=== PATIENT | female | born 1975 | race Caucasian/White ===

== ENCOUNTER → 2017-02-22 | Outpatient (CLI) | payer OTHER ==
[~2017-02-22] MED LIST: CYCL10TA6 PO; ERGO500037 PO; IBUP600T44 PO; OXYC-57 PO; ventolin inhaler INH
--- NOTE | 2017-02-22 10:57 | DIAGNOSTIC IMAGING REPORT ---
MRI CERVICAL WITHOUT CONTRAST CLINICAL HISTORY: Neck pain. Cervical spinal stenosis. TECHNIQUE: Sagittal and axial T1, T2 and STIR images were obtained. COMPARISON STUDY: No previous studies for comparison. There are no suspicious areas of marrow replacement. No intrinsic cervical cord lesions are visualized. C2-3: There is no evidence of disc bulge or focal herniation. There is no spinal or foraminal stenosis. C3-4: There is no evidence of disc bulge or focal herniation. There is no spinal or foraminal stenosis. C4-5: There is a mild circumferential disc bulge. There is minor spinal canal narrowing. There is no significant foraminal narrowing C5-6 :There is a mild circumferential disc bulge. There is bilateral foraminal narrowing. There is mild spinal canal narrowing C6-7: There is a mild circumferential disc bulge present. There is no significant spinal stenosis. There is minor bilateral foraminal narrowing C7-T1: There is no evidence of disc bulge or focal herniation. There is no evidence of spinal or foraminal stenosis. IMPRESSION: 1. Multilevel spondylitic changes. Mild spinal stenosis at the C4-5 and C5-6 levels. Bilateral foraminal narrowing C5-6 and C6-7 levels. 2. No intrinsic cervical cord lesions are visualized Electronically signed by: Mook Banks M.D. 02/22/2017 10:56 AM Dictated Date/Time: 02/22/2017 10:37 AM
== END | disposition home or self-care (01) ==
LOC: C.MRI 09:50
PROVIDERS: ATTEND Orthopaedic Surgery Orthopaedic Surgery of the Spine
DX: M99.81 Other biomechanical lesions of cervical region (principal); M47.812 Spondylosis without myelopathy or radiculopathy, cervical region

== ENCOUNTER → 2017-03-08 | Outpatient (CLI) | payer OTHER | END | disposition home or self-care (01) | LOC: C.LAB 15:03 | DX: E55.9 Vitamin D deficiency, unspecified (principal); E03.9 Hypothyroidism, unspecified ==

== ENCOUNTER 2017-04-18 05:06 | Inpatient (IN) | payer OTHER ==
[2017-03-08 14:44] VITALS: BMI 32.0
--- NOTE | 2017-03-08 15:11 | PAT Medication Instructions ---
Service Date Mar 08, 2017. Current Home Medication List Cyclobenzaprine Hcl (Flexeril), 10 MG PO BID PRN for PRN Ergocalciferol (Vitamin D 69446 Unit), 50,000 UNIT PO MONDAY Ibuprofen (Motrin), 600 MG PO Q6H PRN for Pain Oxycodone/Acetaminophen 5MG/325MG (Percocet 5MG/325MG), 1-2 TABLETS PO Q6 PRN for Pain Medication Instructions For Your Scheduled Surgery - Hold the following medications 7-10 days prior to surgery per surgeon's instructions: Ibuprofen (Motrin), 600 MG PO Q6H PRN for Pain - Hold the following medications the morning of surgery: Cyclobenzaprine Hcl (Flexeril), 10 MG PO BID PRN for PRN - Take the following medications the morning of surgery with a sip of water OTHERWISE NOTHING TO EAT OR DRINK AFTER MIDNIGHT: Oxycodone/Acetaminophen 5MG/325MG (Percocet 5MG/325MG), 1-2 TABLETS PO Q6 PRN for Pain (may take up to 4 hours prior to surgery if needed) - Take the following medications as scheduled the night before surgery: Cyclobenzaprine Hcl (Flexeril), 10 MG PO BID PRN for PRN Oxycodone/Acetaminophen 5MG/325MG (Percocet 5MG/325MG), 1-2 TABLETS PO Q6 PRN for Pain If you have any questions please call us at [phone] or [phone] or [phone]
--- NOTE | 2017-03-08 15:57 | DIAGNOSTIC IMAGING REPORT ---
TWO VIEW CHEST CLINICAL HISTORY: Preoperative examination. FINDINGS: PA and lateral chest radiographs are obtained. No prior studies are available for comparison at the time of dictation. The cardiac mediastinal silhouette is unremarkable. There are low lung volumes with mild elevation of left hemidiaphragm. The lungs and pleural spaces are clear. There is no pneumothorax. The bony thorax appears intact. IMPRESSION: Low lung volumes with no active disease in the chest. Electronically signed by: Narciso Lin M.D. 03/08/2017 3:55 PM Dictated Date/Time: 03/08/2017 3:54 PM
[2017-03-08 16:17] LABS: BASO % 0.2 %; BASO ABS # 0.02 K/uL (0-0.2); COMPLETE YES; HEMATOCRIT 42.6 % (37-47); IG% 0.2 %; LYMPH % 27.1 %; LYMPH ABS # 2.58 K/uL (1.2-3.4); MEAN CELL VOLUME 89.1 fL (80-100); MEAN CORPUSCULAR HEMOGLOBIN 30.8 pg (25-34); MEAN CORPUSCULAR HGB CONC 34.5 g/dl (32-36); MONO % 7.1 %; NEUT % 64.4 %; PLATELET COUNT 369 K/uL (130-400); RED BLOOD COUNT 4.78 M/uL (4.2-5.4); WHITE BLOOD COUNT 9.53 K/uL (4.8-10.8)
[2017-03-08 16:18] LABS: URINE APPEARANCE CLEAR (CLEAR); URINE BILIRUBIN NEG (NEG); URINE COLOR YELLOW; URINE NITRITE NEG (NEG); URINE PH 5.5 (4.5-7.5); URINE SPECIFIC GRAVITY 1.022 (1.000-1.030); UROBILINOGEN NEG (NEG)
[2017-03-08 16:22] LABS: MANUAL MICROSCOPIC REQUIRED? NO; REVIEW REQ? NO
[2017-03-08 16:35] LABS: CALCIUM 9.1 mg/dl (8.5-10.1); CREATININE 0.74 mg/dl (0.60-1.20); POTASSIUM 4.2 mmol/L (3.5-5.1)
--- NOTE | 2017-04-10 12:56 | HISTORY & PHYSICAL EXAMINATION ---
DATE OF ADMISSION: 04/18/2017 CHIEF COMPLAINT: Neck pain and bilateral hand numbness. HISTORY OF PRESENT ILLNESS: The patient is a 41-year-old female with a chronic history of neck pain that radiates into the arms bilaterally. She reports paresthesias, dysesthesias in both hands that has been present for greater than a year. She has been treated with physical therapy and epidural injections without lasting improvement. She has had 2 different MRIs that demonstrates varying degrees of cervical disc degeneration C4-C5 and C5-C6 with disc protrusions and central and foraminal stenosis. Neurocompression is greatest at C5-C6 with indentation of the ventral cord and decreased space available for the cord in the central canal. She has foraminal stenosis greatest at C5-6 bilaterally. She has modest narrowing centrally at C4-C5 as well. There is no myelomalacia. She denies pipo myelopathic symptoms. She denies incontinence. PAST MEDICAL HISTORY: History of obesity, chronic neck and back pain, history of mitral valve prolapse, history of septoplasty 94. MEDICATIONS: Percocet, Flexeril, ibuprofen, vitamin D. ALLERGIES: SILVADENE. SOCIAL HISTORY: The patient denies alcohol, tobacco or drug use. FAMILY HISTORY: She denies any known history of malignant hypothermia, difficult intubation. REVIEW OF SYSTEMS: The patient denied coronary artery disease, dyspnea on exertion, chest pain, shortness of breath, history of incontinence. PHYSICAL EXAMINATION: The patient stands 5 feet 4 inches tall, weighs 180 pounds. Her BMI is 31. She stands easily and ambulates with a normal gait without ataxia. She has normal affect and questions appropriately. She has full cervical range of motion with a negative Lhermitte's and negative Spurling's. She has 5/5 strength mini motor testing of both upper extremities and intact sensation to light touch in all distributions in the upper extremities and symmetric normal DTRs in the upper extremities with negative Roldan's bilaterally. She has palpable radial pulses bilaterally and negative Tinel's over the median nerve at the wrist. She has regular rate and rhythm on auscultation of the heart. Lungs are clear to auscultation bilaterally. She has mild centripetal obesity, no obvious gait disturbance and normal appearing skin with no scars in the neck. ASSESSMENT AND PLAN: The patient has known cervical stenosis that has caused chronic unremitting neck pain with bilateral upper extremity radiculopathy. She desires surgical intervention. ACDF C4-C5 and C5-C6 was discussed. She would like to proceed. Her questions were answered.
[~2017-04-18] VITALS: Ht 162.6 cm; Wt 86.3 kg
[2017-04-18] VITALS (18 sets, daily range): BP systolic 120–145; BP diastolic 80–95; PULSE 53–101; TEMP 36.4–36.9; O2SAT 97–98; Ht 162.6 cm; Wt 86.3 kg
[~2017-04-18 05:06] MED LIST changes: +CEFAZOLIN 1000MG/55 ML D5W IV SCH; +CEFAZOLIN 2000 MG/60 ML D5W 60 ML IV SCH; +CEFAZOLIN 3000 MG/65 ML D5W IV SCH; +CLINDAMYCIN PHOS 150 MG/ML 2 ML VIAL IV SCH; +CeleBREX 200 MG CAP PO SCH; +LACTATED RINGER'S 1000ML 1,000 ML IV SCH; +LACTATED RINGER'S 1000ML 500 ML IV SCH; +OXYMETAZOLINE HCL 0.05% NA SPR 15 ML BTL SCH; +PREGABALIN 75 MG CAP PO SCH; +SODIUM CHLORIDE 0.9% 1000ML IV SCH; -ventolin inhaler INH
[2017-04-18] MEDS ORDERED: ventolin inhaler INH (05:48)
[2017-04-18] MEDS ORDERED: PREGABALIN 75 MG CAP PO SCH (06:00)
[2017-04-18] MEDS ORDERED: CeleBREX 200 MG CAP PO SCH (06:00)
[2017-04-18] MEDS ORDERED: LACTATED RINGER'S 1000ML 1,000 ML IV SCH (06:00)
[2017-04-18] MEDS ORDERED: CEFAZOLIN 2000 MG/60 ML D5W IV SCH (06:00)
[2017-04-18] MEDS ORDERED: FENTANYL CITRATE INJ 50 MCG/1 ML 2 ML VIAL ONE ×3 (06:43→08:17)
[2017-04-18] MEDS ORDERED: MIDAZOLAM HCL 1 MG/ML 2ML VIAL ONE (06:43)
[2017-04-18] MEDS ORDERED: THROMBIN 5000 UNITS KIT ONE (06:52)
[2017-04-18] MEDS ORDERED: BACITRACIN 50000 UNIT VIAL ONE (06:52)
[2017-04-18 06:59] LABS: PREG INTERNAL NEGATIVE QC NEG CLEAR BACKGROUND; PREG INTERNAL POSITIVE QC POS CONTROL LINE
--- NOTE | 2017-04-18 07:39 | History & Physical Bridge Note ---
H&P Re-Evaluation Bridge Note: I have examined the patient, reviewed the History & Physical and in the interval since the performance of the History & Physical I have noted the following changes of clinical significance: possible C6-7 ACDFNo changes noted
[2017-04-18] MEDS ORDERED: PHENYLEPHRINE 100MCG/ML 5ML SYR IV PRN (08:15)
[2017-04-18] MEDS ORDERED: HYDROmorphone INJ 1 MG/ML SYR IV PRN ×2 (08:15→09:30)
[2017-04-18] MEDS ORDERED: LABETALOL HCL IV 5 MG/ML 20ML IV PRN (08:15)
[2017-04-18] MEDS ORDERED: MEPERIDINE HCL 25 MG/ML CARP IV PRN (08:15)
[2017-04-18] MEDS ORDERED: NALOXONE HCL 0.4 MG/1 ML VIAL/CARP IV PRN ×2 (08:15→09:30)
[2017-04-18] MEDS ORDERED: FLUMAZENIL 0.1 MG/1 ML 10 ML VIAL IV PRN (08:15)
[2017-04-18] MEDS ORDERED: ONDANSETRON INJ 2 MG/ML 2 ML VIAL IV PRN ×2 (08:15→09:30)
[2017-04-18] MEDS ORDERED: ATROPINE SULFATE 0.1 MG/ML 5ML SYR IV PRN (08:15)
[2017-04-18] MEDS ORDERED: EpHEDrine SULFATE INJ 50 MG/ML AMP IV PRN (08:15)
[2017-04-18] MEDS ORDERED: MoRPHine SULFATE 10 MG/ML CARP/VIAL IV PRN (08:15)
[2017-04-18] MEDS ORDERED: HYDROmorphone INJ 2 MG/ML SYR/VIAL ONE (08:17)
[2017-04-18] MEDS ORDERED: PROPOFOL IV EMULSION 10 MG/ML 20 ML VIAL IV ONE (08:39)
[2017-04-18] MEDS ORDERED: DEXAMETHASONE SOD INJ 4 MG/ML VIAL ONE (08:39)
[2017-04-18] MEDS ORDERED: RANITIDINE HCL 25 MG/ML INJ ONE (08:39)
[2017-04-18] MEDS ORDERED: METOCLOPRAMIDE HCL INJ 5 MG/ML 2 ML VIAL ONE (08:39)
[2017-04-18] MEDS ORDERED: ONDANSETRON INJ 2 MG/ML 2 ML VIAL ONE ×2 (08:39→11:09)
[2017-04-18] MEDS ORDERED: LIDOCAINE HCL 2% 2 ML VIAL (20MG/ML) ONE (08:39)
[2017-04-18] MEDS ORDERED: ROCURONIUM BROMIDE 10 MG/ML 5 ML VIAL ONE (08:39)
[2017-04-18] MEDS ORDERED: FLOSEAL HEMOSTATIC MATRIX 5ML TOP ONE (09:08)
--- NOTE | 2017-04-18 09:29 | [facility] Post Operative Brief Note ---
Immediate Operative Summary Operative Date April 18, 2017. Pre-Operative Diagnosis Cervical stenosis that has caused chronic unremitting neck pain with bilateral upper extremity radiculopathy Post-Operative Diagnosis Cervical stenosis that has caused chronic unremitting neck pain with bilateral upper extremity radiculopathy Procedure(s) Performed C4-C6 Anterior Cervical Discectomy and Fusion, Allograft and PEEK Surgeon Dr. Orville Herrera Room Service Server Surgeon(s) None Estimated Blood Loss 5ml Findings dict Specimens None per surgeon
[2017-04-18] MEDS ORDERED: DiphenhydrAMINE HCL 50 MG/ML VIAL IV PRN (09:30)
[2017-04-18] MEDS ORDERED: LORAZEPAM INJ 0.5 MG in SYRINGE 0.75 ML IV PRN (09:30)
[2017-04-18] MEDS ORDERED: ACETAMINOPHEN IV 1,000 MG in EMPTY BAG 0 ML IV PRN (09:30)
[2017-04-18] MEDS ORDERED: RACEPINEPHRINE 2.25% NEBU SOLN 0.5 ML VIAL INH PRN (09:30)
[2017-04-18] MEDS ORDERED: DEXAMETHASONE INJ 8 MG in SYRINGE 0 ML IV PRN (09:30)
[2017-04-18] MEDS ORDERED: LORAZEPAM 0.5 MG TAB PO PRN (09:30)
[2017-04-18] MEDS ORDERED: IV FLUIDS COMPLETED PRN (10:15)
--- NOTE | 2017-04-18 10:17 | Anesthesiology Progress Note ---
Anesthesia Post Op Note Date & Time April 18, 2017 at 10:16 Vital Signs Pain Intensity: 0 Vital Signs Past 12 Hours Date Time Temp Pulse Resp B/P Pulse Ox O2 Delivery O2 Flow Rate FiO2 04/18/17 10:00 51 16 145/86 98 Nasal Cannula 3 04/18/17 09:50 53 14 151/100 99 Mask 10 04/18/17 09:40 57 14 170/90 99 Mask 10 04/18/17 09:32 36.3 66 14 172/99 99 Mask 10 04/18/17 05:53 36.9 79 18 142/95 97 Room Air Notes Mental Status: alert / awake / arousable, participated in evaluation Pt Amnestic to Procedure: Yes Nausea / Vomiting: adequately controlled Pain: adequately controlled Airway Patency, RR, SpO2: stable & adequate BP & HR: stable & adequate Hydration State: stable & adequate Anesthetic Complications: no major complications apparent
[2017-04-18] MEDS ORDERED: NEOSTIGMINE METHYLSULFATE 1 MG/ML 10ML VIAL ONE (11:09)
[2017-04-18] MEDS ORDERED: GLYCOPYRROLATE INJ 0.2 MG/ML VIAL ONE (11:09)
[2017-04-18] MEDS: SODIUM CHLORIDE 0.9% 1000ML 1,000 ML IV SCH ×2 (12:24→23:29)
[2017-04-18] MEDS: OXYCODONE HCL IR 5 MG TAB (IMMEDIATE RELEASE) PO PRN ×2 (12:24→23:29)
--- NOTE | 2017-04-18 13:05 | DIAGNOSTIC IMAGING REPORT ---
INTRAOPERATIVE RADIOGRAPHS CLINICAL HISTORY: Cervical spinal fusion. Fluoroscopy time: 7 seconds. FINDINGS: 2 spot fluoroscopic views of cervical spine are presented. There are changes from anterior fusion seen from C4 through C7. Orthopedic hardware is grossly intact. An endotracheal tube is in place. IMPRESSION: Intraoperative images from anterior cervical spine fusion from C4 -C7. Electronically signed by: Narciso Lin M.D. 04/18/2017 1:03 PM Dictated Date/Time: 04/18/2017 1:02 PM
[2017-04-18] MEDS ORDERED: NURSING VERBAL MED ORDER ONE (16:45)
[2017-04-18] MEDS: CEFAZOLIN IV 2,000 MG in DEXTROSE 5% 50ML 50 ML IV SCH ×2 (16:47→23:29)
[2017-04-18] MEDS ORDERED: CYCLOBENZAPRINE HCL 10 MG TAB PO PRN (17:00)
--- NOTE | 2017-04-18 17:21 | OPERATIVE REPORT ---
DATE OF OPERATION: 04/18/2017 PREOPERATIVE DIAGNOSES: 1. C4-5 herniated nucleus pulposus. 2. C5-6 herniated nucleus pulposus. POSTOPERATIVE DIAGNOSES: Same. PROCEDURES: 1. C4-5 and C5-6 anterior cervical discectomy and fusion and application of PEEK intervertebral spacer with local autograft and DBM putty at each level. 2. Anterior cervical instrumentation C4-C6 with LDR anterior cervical blade plates. SURGEON: Dr. Herrera. ANESTHESIA: General endotracheal anesthesia. COMPLICATIONS: None. ESTIMATED BLOOD LOSS: Minimal to none. DESCRIPTION OF PROCEDURE: After identification of patient and operative level, she was brought to the OR where she underwent induction of general anesthesia. She was then positioned supine on Wilber OR table. All bony prominences were well padded. Care was taken to avoid pressure on the periorbital area. Lumbosacral area was sterilely prepped and draped in usual fashion. Antibiotics were administered. Time-out was performed. Level was confirmed and skin incision was made on the right side of the neck at the level of the cricoid cartilage. I divided the platysma in line with the incision and performed routine anterior cervical exposure with blunt dissection medial to the sternocleidomastoid and carotid sheath. I identified the presumptive disc spaces and there were anterior osteophytes. I took them down and then mobilized the longus colli. Middleton pins were placed in the bodies of C4 and C6 with self-retaining retractor in the longus colli. I then applied distraction across Middleton pins and confirmed level with fluoroscopy and marked the operative levels and then did complete discectomies at C4-5 and C5-6. After removing the disk at each level, I took down the posterior osteophytes, posterior annulus, and the PLL and did wide foraminotomies. I palpated the nerve roots were decompressed each foramen. I then decorticated the endplates at C4-5 and C5-6 with a high speed robles. I then determined graft size with trial sizers and tamped a PEEK cage filled with local bone and DBM putty into each interspace. I then released Middleton distraction, applied bone wax over the holes and then inserted the LDR blade plates into C4-5 and C5-6 respectively. I removed the insertion handles, confirmed hemostasis, irrigated with bacitracin solution and then closed over a small round drain. All sponge and needle counts were correct at the end of the case. Please note final x-rays confirming good cage placement and better deployment. I attest to the content of the Intraoperative Record and any orders documented therein. Any exceptio ns are noted below.
[2017-04-18] MEDS: DEXAMETHASONE INJ 6 MG in SYRINGE 0 ML IV SCH (17:54)
[2017-04-19] VITALS (12 sets, daily range): BP systolic 103–129; BP diastolic 68–84; PULSE 61–78; TEMP 36.3–36.9; O2SAT 83–98
[2017-04-19] MEDS: DEXAMETHASONE INJ 6 MG in SYRINGE 0 ML IV SCH ×2 (01:59→09:58)
[2017-04-19] MEDS: OXYCODONE HCL IR 5 MG TAB (IMMEDIATE RELEASE) PO PRN (03:53)
--- NOTE | 2017-04-19 07:43 | Anesthesiology Progress Note ---
Anesthesia Post Op Note Date & Time April 19, 2017 at 07:43 Vital Signs Pain Intensity: 3.0 Vital Signs Past 12 Hours Date Time Temp Pulse Resp B/P Pulse Ox O2 Delivery O2 Flow Rate FiO2 04/19/17 07:21 36.6 64 17 111/74 98 Nasal Cannula 2.0 04/19/17 06:28 96 Nasal Cannula 2.0 Humidified Oxygen 04/19/17 06:28 83 Room Air 04/19/17 05:45 36.6 76 16 115/70 93 Room Air 04/19/17 03:45 36.5 78 20 129/84 97 Nasal Cannula 2.0 Humidified Oxygen 04/19/17 03:01 61 14 98 Nasal Cannula 2.0 04/19/17 01:45 36.6 73 20 124/84 98 Nasal Cannula 2.0 Humidified Oxygen 04/18/17 23:36 36.4 73 20 135/90 97 Nasal Cannula 2.0 Humidified Oxygen 04/18/17 23:29 63 14 98 Nasal Cannula 2.0 04/18/17 23:15 Nasal Cannula 2.0 Humidified Oxygen 04/18/17 22:59 36.6 68 16 138/92 97 Humidified Oxygen 2.0 04/18/17 21:45 36.6 96 18 125/84 97 Humidified Oxygen 2.0 04/18/17 20:02 70 16 97 Nasal Cannula 2.0 04/18/17 19:51 36.7 101 16 142/90 97 Humidified Oxygen 2.0 Notes Mental Status: alert / awake / arousable, participated in evaluation Pt Amnestic to Procedure: Yes Nausea / Vomiting: adequately controlled Pain: adequately controlled Airway Patency, RR, SpO2: stable & adequate BP & HR: stable & adequate Hydration State: stable & adequate Anesthetic Complications: no major complications apparent
[2017-04-19] MEDS: CEFAZOLIN IV 2,000 MG in DEXTROSE 5% 50ML 50 ML IV SCH (07:59)
[2017-04-19] MEDS ORDERED: OXYC-57 PO (13:25)
--- NOTE | 2017-04-19 13:26 | Discharge Instructions ---
Discharge Instructions Date of Service April 19, 2017. Admission Reason for Admission: Cervical Spinal Stenosis Discharge Discharge Diagnosis / Problem: same Discharge Goals Goal(s): Decrease discomfort Activity Recommendations Activity Limitations: per Instructions/Follow-up section . Instructions / Follow-Up Instructions / Follow-Up ACTIVITY RECOMMENDATIONS: SELF CARE INSTRUCTIONS AFTER CERVICAL FUSIONS 1. No smoking. Smoking drastically decreases the chance of a solid fusion. 2. No bending, lifting more than 5 pounds, or twisting (roll like a log when turning in bed). 3. You may shower 3 days after surgery. Thoroughly dry wound. Do not soak in the tub. 4. Cervical collar: Must be worn at all times including sleeping. You may remove the brace only to bath, eat and if you are sitting in a recliner. 5. Please walk as much as you can for exercise. Gradually increase the distance that you walk as your endurance increases. SPECIAL CARE INSTRUCTIONS: VERY IMPORTANT TO READ AND REVIEW A. Do not take any anti-inflammatory medications (i.e. Indocin, Advil, Aspirin, Naprosyn, Aleve, Motrin, etc.) as these may inhibit the chance of a solid fusion. Tylenol is okay to take. B. Your surgical incision has been closed with a cosmetic suture under the skin that will dissolve in about 6 weeks. In 14 days, you can use a pair of clean scissors and cut the suture that is left outside of the skin at the ends of your incision. C. Complications are uncommon, but please contact us if you have any signs or symptoms of: 1. wound infection (fever higher than 102.5 degrees F, redness, separation of wound, drainage, or increasing pain from the incision) 2. blood clots in legs (pain, swelling, redness and warmth in legs) 3. urinary tract infection (fever higher than 102.5 degrees, burning upon urination or increased frequency of urination) 4. nerve problems (inability to walk on your toes or heels, numbness, loss of bowel or bladder control) 5. any other symptoms that concern you. D. Please call the office at if you have any concerns or questions about your operation or recovery. MANAGING PAIN AFTER SPINAL SURGERY 1. Narcotic medication is intended for short-term use and will be provided for surgical pain. Surgical pain usually lasts for a period of 4-6 weeks. Narcotic medication includes Percocet, Vicodin, Darvocet, Tylenol #3 or Lortab. 2. Longer-term pain is more appropriately treated with non-narcotic medication such as Tylenol ES. 3. Muscle spasm is not appropriately treated with narcotics. Muscle relaxers such as Soma, Flexeril or Skelaxin can be used along with Tylenol ES. 4. Remember that we all live with some "aches and pains". This is not unusual or uncommon after an injury or as we get older. 5. We will provide appropriate medication within the normal guidelines of their prescribed use. We will also be very cautious and aware of potential abuse and extended duration of patients' medication needs. 6. Please allow 2-3 days to process refills. Prescriptions will not be mailed but must be picked up at the office. FOLLOW UP VISIT: Keep your scheduled follow-up appointment. Any questions, please call the office at . Current Hospital Diet Patient's current hospital diet: Clear Liquid Diet Discharge Diet Recommended Diet: Regular Diet Procedures Procedures Performed: C4-C6 Anterior Cervical Discectomy and Fusion, Allograft and PEEK Pending Studies Studies pending at discharge: no Medical Emergencies . Who to Call and When: Medical Emergencies: If at any time you feel your situation is an emergency, please call 911 immediately. . Non-Emergent Contact Non-Emergency issues call your: Surgeon . "Provider Documentation" section prepared by Orville Herrera. . VTE Core Measure Inpt VTE Proph given/why not?: SCD's [place] Drug Monitoring Program Search Results: patient reviewed within database, no issues identified
--- NOTE | 2017-04-19 13:30 | Discharge Summary ---
Orthopedic Discharge Summary Admission Date/Reason April 18, 2017 at 07:30 Cervical Spinal Stenosis. Discharge Date/Disposition April 19, 2017 Home Diagnosis Principal Diagnosis: same Procedure(s) Performed acdf Medication Reconciliation Continued Medications: Cyclobenzaprine Hcl (Flexeril) 10 Mg Tab 10 MG PO BID PRN for PRN, #21 TAB Ergocalciferol (Vitamin D 14395 Unit) 50,000 Unit Cap 74107 UNIT PO MONDAY, CAP Ibuprofen (Motrin) 600 Mg Tab 600 MG PO Q6H PRN for Pain, TAB Oxycodone/Acetaminophen 5MG/325MG (Percocet 5MG/325MG) Tab 1-2 TABLETS PO Q6 PRN for Pain, #90 TAB (This prescription has been renewed) PAIN [ventolin inhaler] () 1-2 PUFFS INH Q4 PRN for SOB/Wheezing Admission Physical Exam As per Admitting History & Physical. Hospital Course Patient was admitted for elective cervical fusion and tolerated procedure well. She tolerated diet, pain was controlled, neuro stable. Discharge Instructions Please refer to the electronic Patient Visit Report (Discharge Instructions) for additional information.
== END 2017-04-19 14:49 | disposition home or self-care (01) | DRG 473 ==
LOC: ENRESERVTM → ENRESERVDT → C.ACU 05:06 → OBSVTOIN 07:30 → C.3E 07:30
PROVIDERS: ADMIT Orthopaedic Surgery Orthopaedic Surgery of the Spine; ATTEND Orthopaedic Surgery Orthopaedic Surgery of the Spine
PROC: 0RT30ZZ Resection of Cervical Vertebral Disc, Open Approach (ICD-10-PCS; principal; 2017-04-18 07:30)
PROC: 0RG20A0 Fusion of 2 or more Cervical Vertebral Joints with Interbody Fusion Device, Anterior Approach, Anterior Column, Open Approach (ICD-10-PCS; principal; 2017-04-18 07:30)
DX: M48.02 Spinal stenosis, cervical region (principal); M50.121 Cervical disc disorder at C4-C5 level with radiculopathy; M50.122 Cervical disc disorder at C5-C6 level with radiculopathy; E66.9 Obesity, unspecified; Z68.31 Body mass index [BMI] 31.0-31.9, adult